=== PATIENT | male | born 1985 | race African-American/Black ===

== ENCOUNTER 2017-06-23 12:01 | Emergency (ER) | payer OTHER ==
[~2017-06-23] VITALS: Ht 175.3 cm; Wt 90.7 kg
[~2017-06-23 12:01] MED LIST: UNOBMED
[2017-06-23] MEDS ORDERED: DOCUSATE SODIU100 MG ORAL (12:20)
[2017-06-23] MEDS ORDERED: OLANZAPINE ODT10 MG PO (12:20)
[2017-06-23] MEDS ORDERED: BUSPIRONE HCL5 M2 ORAL (12:20)
[2017-06-23] MEDS ORDERED: DEPAKOTE500 MG PO (12:20)
[2017-06-23] MEDS ORDERED: PHENOBARBITAL30 MG ORAL (12:20)
--- NOTE | 2017-06-23 12:29 | Emergency Room Report ---
History of Present Illness General Chief Complaint: Head Injury Source: Medical Record Present Illness HPI 32 yo male patient presents to ER BIB general accounting clerk for scan of head. Patient had unwitnessed seizure 2 days ago and hit head; patient had "cut" over right eyebrow that did not require sutures and subconjunctival hemorrhage. Silvering Applicator reports no seizures since that time. Silvering Applicator reports patient is developmentally challenged. Silvering Applicator reports patient is at baseline mentation. Patient able to understand and respond to questions. Patient seen by marketing business analyst yesterday, told to come to ER for scan of head. Denies nausea, vomiting, chest pain, fever. Allergies: Coded Allergies: No Known Allergies (Unverified , 01/16/12) Patient History Past Medical History: see triage record Reviewed Nursing Documentation: PMH: Agreed, PSxH: Agreed Nursing Documentation-PMH Past Medical History: No History, Except For Hx Gastrointestinal Problems: Yes - Constipation History Of Psychiatric Problem: Yes - psychosis, depression Hx Seizures: Yes Review of Systems All Other Systems: negative except mentioned in HPI Physical Exam Vital Signs Date Time Temp Pulse Resp B/P (MAP) Pulse Ox O2 Delivery O2 Flow Rate FiO2 06/23/17 12:08 98.5 73 16 148/95 94 Room Air 98.4 Sp02 EP Interpretation: reviewed, normal General Appearance: well appearing, no apparent distress, alert, GCS 15, non- toxic Head: normocephalic, other - 1-2 swelling and ecchymosis under medial right eye ; negative Frost sign, no skull depression Eyes: right eye Scleral Injection, bilateral eye normal inspection, bilateral eye PERRL, bilateral eye EOMI ENT: hearing grossly normal, normal pharynx, normal voice, TMs + canals normal , uvula midline, moist mucus membranes, other - no TTP of teeth Neck: full range of motion Respiratory: normal inspection, lungs clear, normal breath sounds, no rhonchi, no respiratory distress, no accessory muscle use, no wheezing Cardiovascular #1: regular rate, rhythm Gastrointestinal: normal bowel sounds, non tender, soft, no mass, no organomegaly, non-distended, no guarding, no rebound Neurologic: alert, oriented x3, responsive, motor strength/tone normal, normal gait Psychiatric: mood/affect normal Skin: abrasions - right eyebrow, dried blood, no active bleeding, no laceration , no cellulitis Lymphatic: no adenopathy Medical Decision Making PA Attestation Dr. Oliveros is my supervising Physician whom patient management has been discussed with. Diagnostic Impression: Primary Impression: Head injury Additional Impressions: Subconjunctival hemorrhage, traumatic Periodontal disease ER Course Pt. presents to the ED c/o head trauma s/p seizure 2 days ago. Ddx considered but are not limited to fracture, contusion, ICH. Vital signs: are WNL, pt. is afebrile Ordered CT of head and skull and Bacitracin. ER COURSE: CT negative for acute process, extensive and peridontal disease noted. Results discussed with general accounting clerk and patient; states patient is being seen by dentist currently for treatment. Abrasion over right eyebrow. Area cleaned and dressed; Bacitracin placed over abrasion. DISCHARGE: None required at this time per patient's general accounting clerk. Patient has NSAIDs at home for treatment of pain. Does not require seizure medication. At this time pt. is stable for d/c to home. Patient resting comfortably, in no acute distress, nontoxic appearing. Will provide printed patient care instructions, and any necessary prescriptions. Patient instructed to follow with primary care provider in 3 - 5 days for wound check. Silvering Applicator instructed patient needs to followup with physician monitoring patients seizures and medications. Silvering Applicator instructed that patient needs followup with dentist. Care plan and follow up instructions have been discussed with the patient prior to discharge. Patient instructed on RICE method: rest, ice, compression, elevation for injury and swelling.. Take medications as directed. Patient questions asked and answered. ER precautions given, patient instructed to return to ER immediately for any new or worsening of symptoms. CT/MRI/US Diagnostic Results CT/MRI/US Diagnostic Results #1: Imaging Test Ordered: CT skull Impression Evidence of scalp soft tissue injury Negative for acute intracranial bleed or mass effect. CT/MRI/US Diagnostic Results #2: Imaging Test Ordered: CT face Impression No acute bony trauma Extensive dental and periodontal disease, as described Bilateral maxillary sinus mucosal thickening. Last Vital Signs Date Time Temp Pulse Resp B/P (MAP) Pulse Ox O2 Delivery O2 Flow Rate FiO2 06/23/17 12:08 98.5 73 16 148/95 94 Room Air 98.4 Disposition: HOME, SELF-CARE Condition: Stable Patient Instructions: Subconjunctival Hemorrhage, HEAD INJURY with Wake-Up ( Adult) Additional Instructions: Followup with primary care provider in 3 -5 days. Followup with dentist for further treatment and referral. Followup with substation technician. Take medications as directed. Patient questions asked and answered. ER precautions given, patient instructed to return to ER immediately for any new or worsening of symptoms. Christiano Mix Jun 23, 2017 12:29
[2017-06-23] MEDS ORDERED: Bacitracin Oint UD TOPIC ONE ×2 (13:13→13:15)
[2017-06-23 13:16] VITALS: BP 148/95
--- NOTE | 2017-06-23 13:57 | Diagnostic Imaging Report ---
Indications: 7 trauma, facial and head pain Technique: Spiral acquisitions obtained through the brain. Angled axial and coronal 5 x 5 mm slices were reconstructed. Total dose length product 2027.27 mGycm. CTDI vol(s) 70.38,28.19 mGy. Dose reduction achieved using automated exposure control Comparison: None. Findings: Centimeters minimal left supraorbital scalp soft tissue swelling. There is a scalp contusion at the vertex which is best appreciated on the coronal reconstructed images. No acute intracranial hemorrhage or edema, mass effect, nor midline shift. Normal cordero-white differentiation. Normal-sized ventricles and extra axial CSF spaces. The calvarium is intact. The visualized orbits and sinuses are unremarkable. The mastoids are clear. Impression: Evidence of scalp soft tissue injury Negative for acute intracranial bleed or mass effect. The CT scanner at [facility] is accredited by the [employer] and the scans are performed using protocols designed to limit radiation exposure to as low as reasonably achievable to attain images of sufficient resolution adequate for diagnostic evaluation.
--- NOTE | 2017-06-23 14:03 | Diagnostic Imaging Report ---
Indications: Trauma, facial and head pain Technique: Spiral images obtained through the facial bones. No IV contrast utilized. Multiplanar reconstructions were generated.Total dose length product 2027.27 mGycm. CTDIvol(s) 70.38,28.19 mGy. Dose reduction achieved using automated exposure control Comparison: none Findings: No acute fractures. No worrisome sinus opacification. There is minimal right periorbital soft tissue swelling There is extensive dental and periodontal disease. There is a large area of destruction of the posterior right alveolar ridge of the mandible, with only a small fragment of the posterior second molar still present. There is extensive bone loss of the posterior mandibles bilaterally, and evidence of extensive bone loss around the roots of old mandibular incisors. Numerous dental caries are also visualized. There is bilateral maxillary sinus mucosal disease. That on the right is contiguous with the destructive process involving the mandibular alveolar ridge. There is mild leftward nasal septal deviation. The ethmoid and frontal sinuses are clear. The orbits are unremarkable. Impression: No acute bony trauma Extensive dental and periodontal disease, as described Bilateral maxillary sinus mucosal thickening The CT scanner at [facility] is accredited by the [employer] and the scans are performed using protocols designed to limit radiation exposure to as low as reasonably achievable to attain images of sufficient resolution adequate for diagnostic evaluation.
== END 2017-06-23 14:20 | disposition home or self-care (01) ==
LOC: MERGE 12:43 → EMR 12:43
DX: S00.211A Abrasion of right eyelid and periocular area, initial encounter (principal); X58.XXXA Exposure to other specified factors, initial encounter; Y92.9 Unspecified place or not applicable; H11.31 Conjunctival hemorrhage, right eye; K05.6 Periodontal disease, unspecified; F32.9 Major depressive disorder, single episode, unspecified; R51 Headache
CPT/HCPCS: 70450; 70486; 99284